=== PATIENT | male | born 1960 | race Caucasian/White ===

== ENCOUNTER → 2022-09-14 10:21 | Outpatient (CLI) | payer OTHER, SELFPAY ==
--- NOTE | 2022-09-14 10:27 | DI.RAD.S_ITS ---
PROCEDURE: XR LUMBAR SPINE 2-3V INDICATIONS: Chiropractic evaulation TECHNIQUE: 3 views of the lumbar spine were acquired. COMPARISON: None. FINDINGS: Bones: 5 [id number] vertebrae are present. There is normal bony alignment. No vertebral body compression fractures. No suspicious bony lesions. Disc space narrowing and hypertrophic facet joints noted L4-5 and L5-S1 Soft tissues: Overlying bowel gas pattern is normal. No suspicious soft tissue calcifications. 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 No fracture or malalignment Approved by: Henry Kimble M.D. on 09/14/2022 at 11:37
== END ==
PROVIDERS: Referring Provider Chiropractor; Visit Provider Chiropractor
DX: M99.03 Segmental and somatic dysfunction of lumbar region (principal); M99.04 Segmental and somatic dysfunction of sacral region; M51.36 Other intervertebral disc degeneration, lumbar region; M51.37 Other intervertebral disc degeneration, lumbosacral region; M47.816 Spondylosis without myelopathy or radiculopathy, lumbar region; M47.817 Spondylosis without myelopathy or radiculopathy, lumbosacral region
CPT/HCPCS: 72110